=== PATIENT | female | born 1970 | race Caucasian/White ===

== ENCOUNTER 2021-01-05 10:42 | Day surgery (SDC) | payer OTHER, SELFPAY ==
[~2021-01-05] VITALS: Ht 175.3 cm; Wt 101.2 kg
[2021-01-05] MEDS ORDERED: LIDOCAINE 2% 100 MG/5 ML UJET TP ONE (13:26)
[2021-01-05] MEDS ORDERED: MIDAZOLAM 5 MG/5 ML VIAL ONE (13:26)
[2021-01-05] MEDS ORDERED: fentaNYL citrate 0.05 MG/ML VIAL ONE (13:26)
[2021-01-05] MEDS ORDERED: fentaNYL citrate 0.05 MG/ML VIAL IVP ONE (14:45)
== END 2021-01-05 14:45 | disposition home or self-care (01) ==
LOC: MOR 10:42 → MFCC 11:37 → MOR 14:45
PROVIDERS: ATTEND Internal Medicine Gastroenterology
DX: Z12.11 Encounter for screening for malignant neoplasm of colon (principal); K63.5 Polyp of colon; K57.30 Diverticulosis of large intestine without perforation or abscess without bleeding; E66.9 Obesity, unspecified; E11.9 Type 2 diabetes mellitus without complications; I10 Essential (primary) hypertension; E03.9 Hypothyroidism, unspecified; F17.210 Nicotine dependence, cigarettes, uncomplicated; Z79.899 Other long term (current) drug therapy
CPT/HCPCS: 45385; 87426; J3010; J2250